=== PATIENT | male | born 1955 | race Caucasian/White ===

== ENCOUNTER 2018-12-03 09:30 | Day surgery (SDC) | payer OTHER, MEDICAID ==
[2018-12-03 11:08] LABS: INR 0.96; PROTIME 12.9 Sec (11.9-14.9)
[2018-12-03] MEDS ORDERED: FENTAnyl 50 MCG/ML VIAL ×2 (11:14→12:59)
[2018-12-03] MEDS ORDERED: LIDOCAINE 2% (SDV) 5 ML INJ (11:14)
[2018-12-03] MEDS ORDERED: PROPOFOL 20 ML (11:14)
[2018-12-03] MEDS ORDERED: MIDAZOLAM 1 MG/ML 2 ML INJ (11:14)
[2018-12-03 11:32] LABS: PARTIAL THROMBOPLASTIN TIME 40.5 Sec (23.0-35.0)
[2018-12-03] MEDS ORDERED: LIDOCAINE 1% (MPF) 30 ML INJ (12:19)
[2018-12-03] MEDS ORDERED: FAMOTIDINE 20 MG INJ (12:20)
[2018-12-03] MEDS ORDERED: DEXAMETHASONE 4 MG/ML 5 ML INJ (12:20)
[2018-12-03] MEDS ORDERED: ONDANSETRON 4 MG INJ (12:20)
[2018-12-03] MEDS ORDERED: METOCLOPRAMIDE 10 MG INJ (12:20)
[2018-12-03] MEDS ORDERED: morphine SULFATE/PF (10 MG/10 ML) INJ (12:20)
[2018-12-03] MEDS ORDERED: CEFAZOLIN 1 GM INJ (12:20)
[2018-12-03] MEDS ORDERED: LABETALOL HCL 20MG INJ IV (12:30)
[2018-12-03] MEDS ORDERED: hydrALAzine 20 MG INJ IV (12:30)
[2018-12-03] MEDS ORDERED: MEPERIDINE 25 MG INJ IV (12:30)
[2018-12-03] MEDS ORDERED: OXYCODONE/ACETAMINOPHEN (5/325) TAB PO ×2 (12:30)
[2018-12-03] MEDS ORDERED: ONDANSETRON 4 MG INJ IV (12:30)
[2018-12-03] MEDS ORDERED: HYDROmorphONE 1 MG/5 ML IV SYRINGE IV ×3 (12:30)
[2018-12-03] MEDS ORDERED: morphine 2 MG INJ IV (13:00)
[2018-12-03] MEDS ORDERED: KETOROLAC 30 MG INJ IV (13:00)
[2018-12-03] MEDS ORDERED: KETOROLAC 30 MG INJ (13:03)
[2018-12-03] MEDS: NEOMYC/POLYMYX/BACIT 30 GM OINT (13:09)
[2018-12-03] MEDS: ROPIVACAINE 0.5 % 30 ML VIAL (13:09)
== END 2018-12-03 15:10 | disposition home or self-care (01) ==
LOC: SDS 09:30
DX: M23.252 Derangement of posterior horn of lateral meniscus due to old tear or injury, left knee (principal); M23.222 Derangement of posterior horn of medial meniscus due to old tear or injury, left knee; M94.262 Chondromalacia, left knee; E11.9 Type 2 diabetes mellitus without complications; I10 Essential (primary) hypertension; M06.9 Rheumatoid arthritis, unspecified
CPT/HCPCS: 29880; 82306; 85610; 85730